=== PATIENT | female | born 2000 | race African-American/Black ===

== ENCOUNTER 2024-05-18 15:52 | Emergency (ER) | payer SELFPAY ==
[~2024-05-18] VITALS: Ht 170.2 cm; Wt 99.8 kg
[2024-05-18 16:17] VITALS: BP 121/81; PULSE 67; RESP 16; TEMP 98.3; O2SAT 98
== END 2024-05-18 17:40 | disposition home or self-care (01) ==
LOC: ER 16:39
DX: T16.2XXA Foreign body in left ear, initial encounter (principal); X58.XXXA Exposure to other specified factors, initial encounter; Y93.89 Activity, other specified; Y92.89 Other specified places as the place of occurrence of the external cause; Y99.8 Other external cause status
CPT/HCPCS: 69200; 99281; 99284